=== PATIENT | male | born 1975 | race Caucasian/White ===

== ENCOUNTER 2023-08-02 16:18 | Emergency (ER) | payer BC, SELFPAY ==
[2023-08-02 16:19] VITALS: BP 163/84
--- NOTE | 2023-08-02 17:18 | ED.GENMED ---
History of Present Illness
<Luisito Garcia PA-C - Last Filed: 08/02/23 17:24>
General
Chief Complaint: Flank Pain
Source: patient
Time Seen by Provider: 08/02/23 17:07
Travel History
Have you had any contact with someone who has COVID-19?: No
Do you have any symptoms of coronavirus? Fever > 100 degrees, chills, cough, shortness of breath, sore throat, loss of taste or smell, muscle aches, or headache?: No
History of Present Illness
History of Present Illness:
48-year-old male presenting to the emergency department for evaluation of right-sided flank/lower back pain that began around 1 week ago, mild, initially nonradiating but now stating he feels a pulling sensation to the right lower groin that he
states is somewhat similar to when he previously had a kidney stone in the past prompting him to come to the ER for further evaluation today. He took indomethacin for pain once a couple of days ago with mild relief. Denies any other associated
symptoms including urinary frequency/urgency/dysuria or hematuria, fevers/chills or rigors. Denies any heavy lifting/bending or twisting. No neurologic symptoms. No other concerns at this time.
Past History
<Luisito Garcia PA-C - Last Filed: 08/02/23 17:24>
Past History
ED Past Medical History: Hypercholesterolemia and Other (Kidney stones)
ED Past Surgical History: Urological (lithotrisy)
Social History
Tobacco: Former smoker
Alcohol: None
Drug: None
Personal:
Living: with family
Employment: Employed
Review of Systems
<ISRRAEL Broussard Last Filed: 08/02/23 17:24>
Review of Systems
All Other Systems: ROS reviewed and negative except as documented in HPI and ROS
Phy Exam
<ISRRAEL Broussard Last Filed: 08/02/23 17:24>
Physical Exam
Physical Exam:
GENERAL: Alert , in no apparent distress
EYE: clear conjunctiva b/l
HEAD: NCAT
ENT: mmm.
CARDIAC: Regular rate and rhythm .
LUNGS: Clear breath sounds bilaterally, no acute respiratory distress, no wheezes/rales/rhonchi
ABDOMEN: Soft, without focal tenderness, no r/g, no cvat, negative Rowland sign, no tenderness at McBurney's point
Back: Very mild tenderness within the right posterior superior iliac spine. Patient allows for full range of motion without difficulty
NEUROLOGICAL: Alert and oriented
SKIN: Warm and dry, skin intact.
MUSCULOSKELETAL: well perfused.
PSYCH: Normal and appropriate interaction.
Scores
<ISRRAEL Broussard Last Filed: 08/02/23 17:24>
Heart Failure Risk
Heart Failure Risk Score: Not Applicable
Heart Score for Chest Pain Patients
STEMI patient?: Not applicable
Withdrawal Assessment of Alcohol
Withdrawal Assessment Completed?: Not applicable
Course
<ISRRAEL Broussard Last Filed: 08/02/23 17:24>
Orders/Labs/Results
Orders:
Orders
08/02/23 17:12
CT Abd/pel Without Iv Or Oral Urgent
Comment:
Reason For Exam: right flank/low back pain, hx stones
08/02/23 17:28
Complete Blood Count/With Diff Urgent
Comprehensive Metabolic Panel Urgent
Lipase Urgent
Urinalysis Reflex To Culture Urgent
Date Specimen was Collected: 08/02/23
Time Specimen was Collected: 17:21
Abnormal Lab Results
24
17:28
MPV 10.5 H fL
(7.4-10.4)
Absolute Monos (auto) 0.7 H 10^3/uL
(0.1-0.6)
08/02/23 17:28
08/02/23 17:28
Vital Signs
Initial and Last Documented VS:
Initial Vital Signs
Temp Pulse Resp BP Pulse Ox
97.7 F 70 16 163/84 98
08/02/23 16:19 08/02/23 16:19 08/02/23 16:19 08/02/23 16:19 08/02/23 16:19
Last Documented Vital Signs
Temp Pulse Resp BP Pulse Ox
97.7 F 70 16 163/84 98
08/02/23 16:19 08/02/23 16:19 08/02/23 16:19 08/02/23 16:19 08/02/23 16:19
<Bairon Merino PA-C - Last Filed: 08/02/23 18:50>
Orders/Labs/Results
Orders:
Orders
08/02/23 17:12
CT Abd/pel Without Iv Or Oral Urgent
Comment:
Reason For Exam: right flank/low back pain, hx stones
08/02/23 17:28
Complete Blood Count/With Diff Urgent
Comprehensive Metabolic Panel Urgent
Lipase Urgent
Urinalysis Reflex To Culture Urgent
Date Specimen was Collected: 08/02/23
Time Specimen was Collected: 17:21
Abnormal Lab Results
08/02/23
17:28
MPV 10.5 H fL
(7.4-10.4)
Absolute Monos (auto) 0.7 H 10^3/uL
(0.1-0.6)
08/02/23 17:28
08/02/23 17:28
Vital Signs
Initial and Last Documented VS:
Initial Vital Signs
Temp Pulse Resp BP Pulse Ox
97.7 F 70 16 163/84 98
08/02/23 16:19 08/02/23 16:19 08/02/23 16:19 08/02/23 16:19 08/02/23 16:19
Last Documented Vital Signs
Temp Pulse Resp BP Pulse Ox
97.7 F 70 16 163/84 98
08/02/23 16:19 08/02/23 16:19 08/02/23 16:19 08/02/23 16:19 08/02/23 16:19
<Luisito Garcia PA-C - Last Filed: 08/02/23 17:24>
MDM/Problems Addressed
Differential Diagnosis Includes:
Musculoskeletal lower back pain, renal/ureteral colic, urinary tract infection, shingles
MDM/Problems Addressed:
48-year-old male presenting to the emergency department for evaluation of right lower back pain, now feeling the pain into the right groin area stating pain feels similar to previous episodes of kidney stone. Based off of presentation and exam I
suspect symptoms are most likely related to a musculoskeletal back pain. Will check labs, urine and CT imaging. Reassessment following
<Luisito Garcia PA-C - Last Filed: 08/02/23 17:24>
*Pulse Oximetry
Patient hypoxic: no
Data Reviewed
Review of Other/Old Records Reveals: Records and Radiology Studies
<Bairon Merino PA-C - Last Filed: 08/02/23 18:50>
*Critical Care Note
Total Time (30-74mins, 75-104mins- exclusive of procedures): Not Applicable
<Bairon Merino PA-C - Last Filed: 08/02/23 18:50>
Update Note
Update Note:
Assumed care of pt from Mio Garcia PA-C at shift change 1830. Awaiting CT to r/o obstructing uropathy.
CT report reviewed, no stones. Pt remains comfortable. Will d/c
ED Attending Note
<Luisito Garcia PA-C - Last Filed: 08/02/23 17:24>
-
Portions of this chart may have been created with voice recognition software.� Occasional wrong word or��sound alike� substitutions may have occurred due to the inherent limitations of voice recognition software.
Discharge Plan
Departure
Patient Disposition: Home (Routine Discharge)
Date of Disposition: 08/02/23
Time of Disposition: 18:50
Patient with high blood pressure during this ER visit?: No
Discharge Problem:
Acute right flank pain
Instructions: Flank Pain (DC)
Prescriptions:
No Action
guar gum 1 PKT packet
1 pkt PO DAILY
rosuvastatin 5 MG tablet
5 mg PO QPM
icosapent ethyl [Vascepa] 1 GM capsule
2 gm PO BID
Fenofibrate 45 MG Tab
45 mg PO QPM
hydrocodone-acetaminophen 1 EACH tablet
1 ea PO PRN PRN (Reason: pain)
oxycodone 5 mg tablet
5 mg PO Q8H PRN (Reason: pain) Qty: 10 0RF
tamsulosin [Flomax] 0.4 mg capsule
0.4 mg PO QPM
ketorolac 10 mg tablet
10 mg PO QID PRN (Reason: pain) Qty: 20 0RF
Referrals:
Josephine Lamb DO [Family Provider] -
Interventions
Interventions:
*Risk Screen - Suicide Last Done: 08/02/23 18:05
*General Assessment Last Done: 08/02/23 18:05
*Neglect/Abuse Screening Last Done: 08/02/23 18:05
XW-Treayj-Fanjhikyfp Assessment Last Done: 08/02/23 18:05
ED-Male Genitourinary Assessment Last Done: 08/02/23 18:05
Discharge Date and Time
Print Language: FAROESE
[2023-08-02 17:28] VITALS: BMI 32.9
[2023-08-02 17:44] LABS: % Basophils 0.4 % (0-2); % Eosinophils 3.2 % (0-6); % Immature Granulocytes 0.3 % (0-0.5); % Monocytes 9.1 % (1.7-9.3); Absolute Eosinophils 0.2 10^3/uL (0-0.7); Absolute Lymphocytes 2.8 10^3/uL (1.2-3.4); Absolute Monocytes 0.7 10^3/uL (0.1-0.6); Absolute Neutrophils 3.7 10^3/uL (1.4-6.5); Hemoglobin 14.6 g/dL (13.0-18.0); Mean Corp Hgb Conc. 34.8 g/dL (33.0-37.0); Mean Corpuscular Hgb 27.9 pg (27.0-31.0); Mean Corpuscular Volume 80.2 fL (80.0-94.0); Mean Platelet Volume 10.5 fL (7.4-10.4); Nucleated Red Blood Cells % 0 % (-); Platelet Count 193 10^3/uL (130-400); Red Blood Cell Count 5.24 10^6/uL (4.70-6.10); Red Cell Dist. Width 13.3 % (11.5-14.5); White Blood Cell Count 7.5 10^3/uL (4.8-10.8)
[2023-08-02 17:56] LABS: ALT (SGPT) 29 U/L (0-50); AST (SGOT) 27 U/L (17-59); Alkaline Phosphatase 55 U/L (38-126); Blood Urea Nitrogen 17 mg/dl (9-20); Calcium 9.6 mg/dl (8.4-10.2); Carbon Dioxide 28 mmol/L (22-30); Chloride 100 mmol/L (98-107); Estimated Creatinine Clearance 111 ml/min; Glucose 89 mg/dl (70-99); Lipase 84 U/L (23-300); Potassium 3.9 mmol/L (3.5-5.1); Sodium 139 mmol/L (135-145); Total Protein 7.6 g/dl (6.3-8.2); eGFR > 60.00
[2023-08-02 18:24] LABS: Urine Albumin Negative (Neg - Trace); Urine Bilirubin Negative (Negative); Urine Character Clear (Clear); Urine Color Yellow; Urine Glucose Negative (Negative); Urine Ketone Negative (Negative); Urine Leukocyte Negative (Negative); Urine Nitrite Negative (Negative); Urine Occult Blood Negative (Negative); Urine Specific Gravity 1.015 (<1.030); Urine Urobilinogen Negative (Neg - 1+)
== END 2023-08-02 19:15 | disposition home or self-care (01) ==
LOC: EMR 16:18
PROVIDERS: Physician Assistant Medical; EMERGENCY PHYSICIAN Emergency Medicine; FAMILY PHYSICIAN Family Medicine
DX: M54.50 Low back pain, unspecified (principal); Z87.891 Personal history of nicotine dependence
CPT/HCPCS: 99284; 74176; 80053; 81003; 83690; 85025